=== PATIENT | female | born 1980 | race Caucasian/White ===

== ENCOUNTER 2017-07-06 22:49 | Emergency (ER) | payer BC, OTHER ==
--- NOTE | 2017-07-06 23:08 | EDM.PDOC ---
ED HPI GENERAL MEDICAL PROBLEM - General Chief Complaint: Lower Extremity Injury/Pain Stated Complaint: HURT RIGHT FOOT Time Seen by Provider: 07/06/17 23:08 Source of Information: Reports: Patient - History of Present Illness INITIAL COMMENTS - FREE TEXT/NARRATIVE: HISTORY AND PHYSICAL: History of present illness: []Patient stepped off a curb tonight twisted her foot complains of 8 out of 10 pain unable to bare weight No fever nausea vomiting chills sweats Review of systems: As per history of present illness and below otherwise all systems reviewed and negative. Past medical history: As per history of present illness and as reviewed below otherwise noncontributory. Surgical history: As per history of present illness and as reviewed below otherwise noncontributory. Social history: No reported history of drug or alcohol abuse. Family history: As per history of present illness and as reviewed below otherwise noncontributory. Physical exam: HEENT: Atraumatic, normocephalic, pupils reactive, negative for conjunctival pallor or scleral icterus, mucous membranes moist, throat clear, neck supple, nontender, trachea midline. Lungs: Clear to auscultation, breath sounds equal bilaterally, chest nontender. Heart: S1S2, regular, negative for clicks, rubs, or JVD. Abdomen: Soft, nondistended, nontender. Negative for masses or hepatosplenomegaly. Negative for costovertebral tenderness. Pelvis: Stable nontender. Genitourinary: Deferred. Rectal: Deferred. Extremities: Atraumatic, negative for cords or calf pain. Neurovascular unremarkable. Neuro: Awake, alert, oriented. Cranial nerves II through XII unremarkable. Cerebellum unremarkable. Motor and sensory unremarkable throughout. Exam nonfocal. Right rag cutting machine tender over the dorsum entire limb is neurovascularly intact no bruising there is some soft tissue swelling Diagnostics: Right foot 3 views []Right ankle [address] right foot Therapeutics: []Patient declines pain medication on arrival [place] 5 per 325 2 tabs by mouth now Discussed with podiatry nursing education specialist [facility], he recommends tall CAM boot pain control follow-up with podiatry and 1-2 weeks Impression: []Right foot/ankle pain Minimally displaced fracture anterior process of calcaneus Definitive disposition and diagnosis as appropriate pending reevaluation and review of above. Left Feet Pain Score (Numeric/FACES): 5 - Related Data Allergies Allergy/AdvReac Type Severity Reaction Status Date / Time No Known Allergies Allergy Verified 07/06/17 23:00 Home Meds: Home Meds . 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 (See Below) Other OB/BYN History: , d& C Musculoskeletal History: Reports: None Neurological History: Reports: None Psychiatric History: Reports: None Endocrine/Metabolic History: Reports: None Hematologic History: Reports: None Immunologic History: Reports: None Oncologic (Cancer) History: Reports: None Dermatologic History: Reports: None - Past Surgical History Head Surgeries/Procedures: Reports: None HEENT Surgical History: Reports: None Cardiovascular Surgical History: Reports: None Respiratory Surgical History: Reports: None GI Surgical History: Reports: None Female Surgical History: Reports: None Endocrine Surgical History: Reports: None Neurological Surgical History: Reports: None Musculoskeletal Surgical History: Reports: None Oncologic Surgical History: Reports: None Dermatological Surgical History: Reports: None Social & Family History - Family History Family Medical History: Noncontributory - Tobacco Use Smoking Status *Q: Current Every Day Smoker Years of Tobacco use: 1 Packs/Tins Daily: 0.5 Second Hand Smoke Exposure: No - Caffeine Use Caffeine Use: Reports: Coffee - Alcohol Use Days Per Week of Alcohol Use: 0 - Recreational Drug Use Recreational Drug Use: No Review of Systems - Review of Systems Review Of Systems: ROS reveals no pertinent complaints other than HPI. ED EXAM, GENERAL - Physical Exam Exam: See Below Course - Vital Signs Last Recorded V/S: Last Vital Signs Temp 98.5 F 07/06/17 23:01 Pulse 67 07/06/17 23:01 Resp 16 07/06/17 23:01 BP 149/82 H 07/06/17 23:01 Pulse Ox 98 07/06/17 23:01 - Orders/Labs/Meds Orders: Active Orders 24 hr Category Date Time Status Ankle Min 3V Rt [CR] Stat Exams 07/06/17 23:07 Taken Foot Comp Min 3V Rt [CR] Stat Exams 07/06/17 23:08 Taken Foot wo Cont Rt [CT] Stat Exams 07/07/17 00:14 Taken Meds: Medications Discontinued Medications Generic Name Dose Route Start Last Admin Trade Name Richard PRN Reason Stop Dose Admin Hydrocodone Bitart/Acetaminophen 2 tab 07/07/17 01:33 [place] 325-5 Mg PO 07/07/17 01:34 ONETIME ONE Departure - Departure Time of Disposition: 01:37 Disposition: Home, Self-Care 01 Condition: Good Clinical Impression: Fracture of anterior process of calcaneus - Discharge Information Referrals: PCP,None [Primary Care Provider] - Forms: ED Department Discharge Additional Instructions: Cam boot Crutches Nonweightbearing Rest ice ibuprofen [place] 5 per 325 one to 2 tabs by mouth every 6 when necessary #30 no refill Follow-up with podiatry in one to 2 weeks, call number below for appropriate follow-up [facility] - Podiatry [facility] [place] [id number] The following information is given to patients seen in the emergency department who are being discharged to home. This information is to outline your options for follow-up care. We provide all patients seen in our emergency department with a follow-up referral. The need for follow-up, as well as the timing and circumstances, are variable depending upon the specifics of your emergency department visit. If you don't have a primary care physician on staff, we will provide you with a referral. We always advise you to contact your personal physician following an emergency department visit to inform them of the circumstance of the visit and for follow-up with them and/or the need for any referrals to a consulting specialist. The emergency department will also refer you to a specialist when appropriate. This referral assures that you have the opportunity for follow-up care with a specialist. All of these measure are taken in an effort to provide you with optimal care, which includes your follow-up. Under all circumstances we always encourage you to contact your private physician who remains a resource for coordinating your care. When calling for follow-up care, please make the office aware that this follow-up is from your recent emergency room visit. If for any reason you are refused follow-up, please contact the [facility] emergency department at and asked to speak to the emergency department charge nurse. - My Orders Last 24 Hours: My Active Orders 07/06/17 23:07 Ankle Min 3V Rt [CR] Stat 07/06/17 23:08 Foot Comp Min 3V Rt [CR] Stat 07/07/17 00:14 Foot wo Cont Rt [CT] Stat - Assessment/Plan Last 24 Hours: My Active Orders 07/06/17 23:07 Ankle Min 3V Rt [CR] Stat 07/06/17 23:08 Foot Comp Min 3V Rt [CR] Stat 07/07/17 00:14 Foot wo Cont Rt [CT] Stat
[2017-07-07] MEDS ORDERED: Acetaminophen/HYDROcodone 325-5 MG Tab PO ONE (01:33)
--- NOTE | 2017-07-07 09:54 | CR ---
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 Site : 1980 Study: XRay Extremity Right Foot [id number]/25/2017 11:38:30 PM Ordering Physician: Norma He Final Report: HISTORY: Right foot and ankle pain. Injury. TECHNIQUE: Three views of the right ankle. Three views of the right foot. COMPARISON: No prior. FINDINGS: Right ankle: Ankle mortise appears symmetric and maintained. No acute fracture involving the ankle. No radiopaque foreign body or soft tissue gas. - Right foot: On the AP foot radiograph, the longitudinally oriented lucency within the medial navicular bone could be projectional. Does the patient have pain associated with the medial aspect of the navicular bone? If so, a nondisplaced fracture may be considered and CT could be performed for further evaluation. Finding is not confirmed on other views as a true abnormality, however. Osseous structures are otherwise intact. Joint spaces are maintained. No significant malalignment. IMPRESSION: 1. No acute fracture involving the ankle or disruption of the ankle mortise. 2. On the AP foot radiograph, there is longitudinally-oriented lucency within the medial aspect of the navicular bone which may be projectional. Does the patient specifically have pain associated with the medial aspect of the navicular? If so, a CT could be performed to exclude fracture. 3. Osseous structures of the right foot are otherwise intact. Dictated by Adam Lombardi MD @ 07/07/2017 12:11:22 AM Dictated by: Adam Lombardi MD @ 07/07/2017 00:11:34 (Electronic Signature) Report Signed by Proxy. SYDNEY
--- NOTE | 2017-07-07 09:56 | CR ---
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 Site : 1980 Study: XRay Extremity Right Ankle [id number]/25/2017 11:38:54 PM Ordering Physician: Norma He Final Report: HISTORY: Right foot and ankle pain. Injury. TECHNIQUE: Three views of the right ankle. Three views of the right foot. COMPARISON: No prior. FINDINGS: Right ankle: Ankle mortise appears symmetric and maintained. No acute fracture involving the ankle. No radiopaque foreign body or soft tissue gas. - Right foot: On the AP foot radiograph, the longitudinally oriented lucency within the medial navicular bone could be projectional. Does the patient have pain associated with the medial aspect of the navicular bone? If so, a nondisplaced fracture may be considered and CT could be performed for further evaluation. Finding is not confirmed on other views as a true abnormality, however. Osseous structures are otherwise intact. Joint spaces are maintained. No significant malalignment. IMPRESSION: 1. No acute fracture involving the ankle or disruption of the ankle mortise. 2. On the AP foot radiograph, there is longitudinally-oriented lucency within the medial aspect of the navicular bone which may be projectional. Does the patient specifically have pain associated with the medial aspect of the navicular? If so, a CT could be performed to exclude fracture. 3. Osseous structures of the right foot are otherwise intact. Dictated by Adam Lombardi MD @ 07/07/2017 12:11:22 AM Dictated by: Adam Lombardi MD @ 07/07/2017 00:11:51 (Electronic Signature) Report Signed by Proxy. SYDNEY
--- NOTE | 2017-07-08 10:52 | CT ---
EXAM DATE: 07/06/17 PATIENT'S AGE: 36 Patient: CATHY SAVAGE Facility: [facility] Site . Site : 1980 Study: CT-Extremity Right Foot [id number]/26/2017 12:46:32 AM Ordering Physician: Norma He Final Report: Indication: Pain. Evaluate for an occult fracture. Technique: Contiguous axial images were acquired through the right foot with sagittal and coronal reconstructions. Comparison: Radiographs from 07/06/2017. Findings: There is an essentially nondisplaced fracture in the superolateral margin of the tip of the anterior process of the calcaneus. The remainder of the visualized osseous structures are intact. Incidentally noted are benign enostoses/bone islands in the talus and calcaneus. The joint spaces and bony alignment are within normal limits. Impression: Nondisplaced fracture involving the superolateral margin of the anterior process of the calcaneus. Please note that all CT scans at this facility use dose modulation, iterative reconstruction, and/or weight-based dosing when appropriate to reduce radiation dose to as low as reasonably achievable. Dictated by Kory Doran MD @ Jul 08 2017 7:44AM Signed by: Kory Doran MD @07/08/2017 7:51:05 AM (Electronic Signature) Report Signed by Proxy. [facility]
== END 2017-07-07 02:00 | disposition home or self-care (01) ==
LOC: MW.ED 22:49
DX: S92.024A Nondisplaced fracture of anterior process of right calcaneus, initial encounter for closed fracture (principal); W22.8XXA Striking against or struck by other objects, initial encounter
CPT/HCPCS: 73610; 73630; 73700; 99284; A9270

== ENCOUNTER 2019-06-12 20:15 | Emergency (ER) | payer BC ==
[2019-06-12] MEDS ORDERED: Sodium Chloride 0.9% 2.5 ML Syringe FLUSH PRN (20:32)
[2019-06-12] MEDS ORDERED: Sodium Chloride 0.9% 10 ML Syringe FLUSH PRN (20:32)
--- NOTE | 2019-06-12 20:41 | EDM.PDOC ---
ED HPI GENERAL MEDICAL PROBLEM - General Chief Complaint: Chest Pain Stated Complaint: CHEST PAINS Time Seen by Provider: 06/12/19 20:40 Source of Information: Reports: Patient History Limitations: Reports: No Limitations - History of Present Illness INITIAL COMMENTS - FREE TEXT/NARRATIVE: HISTORY AND PHYSICAL: History of present illness: Patient is a 38-year-old female presents to the ED with complaint of shortness of breath and neck pain. She states for the past 2 weeks she has had a dry cough and the past couple of days she feels like it is difficult to take a deep breath and having some chest pain which she attributes to the cough. She is also complaining of a sore throat x 2 weeks. She denies fevers, chills, nausea, vomiting, abdominal pain. She states she also has neck pain and a "lump" in the back of her neck x 3 months. She saw her PCP and was referred to neurology for the neck pain and history of headaches. She has not had an ultrasound of the lump. She states it feels like it has gotten bigger. She denies difficulty breathing or swallowing. Review of systems: As per history of present illness and below otherwise all systems reviewed and negative. Past medical history: As per history of present illness and as reviewed below otherwise noncontributory. Surgical history: As per history of present illness and as reviewed below otherwise noncontributory. Social history: No reported history of drug or alcohol abuse. Family history: As per history of present illness and as reviewed below otherwise noncontributory. Physical exam: General: Patient sitting comfortably in no acute distress and nontoxic appearing HEENT: There is a 1-2cm mobile right occipital lymph node. There is also an enlarged right posterior cervical and right submandibular lymph node. No supraclavicular or other LAD noted. Atraumatic, normocephalic, pupils reactive, negative for conjunctival pallor or scleral icterus, mucous membranes moist, throat clear, neck supple, nontender, trachea midline. No meningeal signs. Lungs: Clear to auscultation, breath sounds equal bilaterally, chest nontender. Heart: S1S2, regular, negative for clicks, rubs, or overt murmur. Abdomen: Soft, nondistended, nontender. Negative for masses or hepatosplenomegaly. Negative for costovertebral tenderness. No rigidity, rebound , guarding. Pelvis: Stable nontender. Genitourinary: Deferred. Rectal: Deferred. Extremities: Atraumatic, negative for cords or calf pain. Neurovascular unremarkable. Neuro: Awake, alert, oriented. Cranial nerves II through XII unremarkable. Cerebellum unremarkable. Motor and sensory unremarkable throughout. Exam nonfocal. Notes: Patient advised to reschedule follow up appointment for lymph node US and need for possible biopsy. Diagnostics: CBC, CMP, Rapid strep, chest x-ray, cervical x-ray Therapeutics: Prescriptions: Impression: Lymphadenopathy, acute bronchitis Plan: Take antibiotic as instructed Follow up with primary care provider Return to ED as needed as discussed Definitive disposition and diagnosis as appropriate pending reevaluation and review of above. Neck Pain Score (Numeric/FACES): 4 - Related Data Allergies Allergy/AdvReac Type Severity Reaction Status Date / Time No Known Allergies Allergy Verified 06/12/19 20:30 Home Meds: Home Meds Albuterol [Ventolin HFA] 1 puff INH Q4H #1 inhaler 06/12/19 [Rx] Codeine/Butalbital/ASA/Caffein [Ascomp with Codeine] 1 each PO ASDIRECTED [History] buPROPion [Wellbutrin] 250 mg PO BID 06/12/19 [History] busPIRone HCl [busPIRone] 45 mg PO ASDIRECTED 06/12/19 [History] traMADol [Ultram] 50 mg PO ASDIRECTED 06/12/19 [History] Past Medical History HEENT History: Reports: None Cardiovascular History: Reports: None Respiratory History: Reports: None Gastrointestinal History: Reports: None Genitourinary History: Reports: None 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: , Other (See Below) Other BLOCKMAN History: , d& C Musculoskeletal History: Reports: None Neurological History: Reports: None Psychiatric History: Reports: None Endocrine/Metabolic History: Reports: None Hematologic History: Reports: None Immunologic History: Reports: None Oncologic (Cancer) History: Reports: None Dermatologic History: Reports: None - Infectious Disease History Infectious Disease History: Reports: None - Past Surgical History Head Surgeries/Procedures: Reports: None HEENT Surgical History: Reports: None Cardiovascular Surgical History: Reports: None Respiratory Surgical History: Reports: None GI Surgical History: Reports: None Female Surgical History: Reports: Section, D&C Endocrine Surgical History: Reports: None Neurological Surgical History: Reports: None Musculoskeletal Surgical History: Reports: None Oncologic Surgical History: Reports: None Dermatological Surgical History: Reports: None Social & Family History - Family History Family Medical History: Noncontributory - Tobacco Use Smoking Status *Q: Current Every Day Smoker Years of Tobacco use: 2 Packs/Tins Daily: 0.2 - Caffeine Use Caffeine Use: Reports: Coffee - Recreational Drug Use Recreational Drug Use: No ED ROS GENERAL - Review of Systems Review Of Systems: ROS reveals no pertinent complaints other than HPI. ED EXAM, GENERAL - Physical Exam Exam: See Below (see dictation) Course - Vital Signs Last Recorded V/S: Last Vital Signs Temp 98.5 F 06/12/19 20:32 Pulse 102 H 06/12/19 20:32 Resp 18 06/12/19 20:32 BP 126/95 H 06/12/19 20:32 Pulse Ox 97 06/12/19 20:32 - Orders/Labs/Meds Orders: Active Orders 24 hr Category Date Time Status Cardiac Monitoring [RC] . DIRECTED Care 06/12/19 20:32 Inactive EKG Documentation Completion [RC] STAT Care 06/12/19 20:32 Active CULTURE STREP A CONFIRMATION [] Stat Lab 06/12/19 21:10 Results STREP SCRN A RAPID W CULT CONF [] Stat Lab 06/12/19 21:10 Results Labs: Laboratory Tests 06/12/19 06/12/19 Range/Units 21:10 21:10 WBC 10.81 (4.0-11.0) K/uL RBC 4.85 (4.30-5.90) M/uL Hgb 14.0 (12.0-16.0) g/dL Hct 42.0 (36.0-46.0) % MCV 86.6 (80.0-98.0) fL MCH 28.9 (27.0-32.0) pg MCHC 33.3 (31.0-37.0) g/dL RDW Std Deviation 42.1 (28.0-62.0) fl RDW Coeff of [place] 14 (11.0-15.0) % Plt Count 242 (150-400) K/uL MPV 10.20 (7.40-12.00) fL Neut % (Auto) 57.2 (48.0-80.0) % Lymph % (Auto) 30.8 (16.0-40.0) % [place] % (Auto) 7.8 (0.0-15.0) % Eos % (Auto) 3.8 (0.0-7.0) % Baso % (Auto) 0.4 (0.0-1.5) % Neut # (Auto) 6.2 H (1.4-5.7) K/uL Lymph # (Auto) 3.3 H (0.6-2.4) K/uL [place] # (Auto) 0.8 (0.0-0.8) K/uL Eos # (Auto) 0.4 (0.0-0.7) K/uL Baso # (Auto) 0.0 (0.0-0.1) K/uL Nucleated RBC % 0.0 /100WBC Nucleated RBCs # 0 K/uL Sodium 144 (136-145) mmol/L Potassium 3.8 (3.5-5.1) mmol/L Chloride 105 (98-107) mmol/L Carbon Dioxide 26.4 (21.0-32.0) mmol/L BUN 20 H (7.0-18.0) mg/dL Creatinine 0.8 (0.6-1.0) mg/dL Est Cr Clr Drug Dosing 97.69 mL/min Estimated GFR (MDRD) > 60.0 ml/min Glucose 109 H (74-106) mg/dL Calcium 8.4 L (8.5-10.1) mg/dL Total Bilirubin 0.2 (0.2-1.0) mg/dL AST 11 L (15-37) IU/L ALT 24 (14-63) IU/L Alkaline Phosphatase 80 (46-116) U/L Total Protein 7.7 (6.4-8.2) g/dL Albumin 4.3 (3.4-5.0) g/dL Globulin 3.4 (2.6-4.0) g/dL Albumin/Globulin Ratio 1.3 (0.9-1.6) Meds: Medications Discontinued Medications Generic Name Dose Route Start Last Admin Trade Name Freq PRN Reason Stop Dose Admin Sodium Chloride 10 ml 06/12/19 20:32 Saline Flush FLUSH ASDIRECTED PRN Keep Vein Open Sodium Chloride 2.5 ml 06/12/19 20:32 Saline Flush FLUSH ASDIRECTED PRN Keep Vein Open Departure - Departure Time of Disposition: 21:50 Disposition: Home, Self-Care 01 Condition: Good Clinical Impression: Acute bronchitis, Lymphadenopathy Referrals: Ariel Maya MD [Primary Care Provider] - Forms: ED Department Discharge Additional Instructions: The following information is given to patients seen in the emergency department who are being discharged to home. This information is to outline your options for follow-up care. We provide all patients seen in our emergency department with a follow-up referral. The need for follow-up, as well as the timing and circumstances, are variable depending upon the specifics of your emergency department visit. If you don't have a primary care physician on staff, we will provide you with a referral. We always advise you to contact your personal physician following an emergency department visit to inform them of the circumstance of the visit and for follow-up with them and/or the need for any referrals to a consulting specialist. The emergency department will also refer you to a specialist when appropriate. This referral assures that you have the opportunity for follow-up care with a specialist. All of these measure are taken in an effort to provide you with optimal care, which includes your follow-up. Under all circumstances we always encourage you to contact your private physician who remains a resource for coordinating your care. When calling for follow-up care, please make the office aware that this follow-up is from your recent emergency room visit. If for any reason you are refused follow-up, please contact the [facility] Emergency Department at and asked to speak to the emergency department charge nurse. [facility] [address] [place] [address] [id number] [address] [address] - My Orders Last 24 Hours: My Active Orders 06/12/19 20:32 Cardiac Monitoring [RC] . DIRECTED EKG Documentation Completion [RC] STAT 06/12/19 21:10 CULTURE STREP A CONFIRMATION [RM] Stat STREP SCRN A RAPID W CULT CONF [RM] Stat - Assessment/Plan Last 24 Hours: My Active Orders 06/12/19 20:32 Cardiac Monitoring [RC] . DIRECTED EKG Documentation Completion [RC] STAT 06/12/19 21:10 CULTURE STREP A CONFIRMATION [RM] Stat STREP SCRN A RAPID W CULT CONF [RM] Stat
--- NOTE | 2019-06-12 21:18 | CR ---
INDICATION: chest pain TECHNIQUE: Chest 2 views. COMPARISON: None. FINDINGS: Cardiovascular and mediastinum: Heart size and vasculature are normal in caliber and appearance. Mediastinum is within normal limits. Lungs and pleural spaces: Lungs are clear. No sign of infiltrate or mass. No sign of pleural effusion. No pneumothorax. Bones and soft tissues: No significant findings. IMPRESSION: Unremarkable chest. Dictated by: Mohsen Ayon MD @ 06/12/2019 21:16:00 (Electronically Signed)
--- NOTE | 2019-06-12 21:22 | CR ---
INDICATION: Pain, no history of trauma TECHNIQUE: Cervical spine 3 view. COMPARISON: None FINDINGS: Bones: Alignment is normal. No fractures or significant bone lesions. Joints: Disc spaces and facets are unremarkable. Soft tissues: Unremarkable. IMPRESSION: Unremarkable cervical spine. Dictated by Mohsen Ayon MD @ 06/12/2019 9:20:21 PM Dictated by: Mohsen Ayon MD @ 06/12/2019 21:20:27 (Electronically Signed)
[2019-06-12 21:40] LABS: BLOOD UREA NITROGEN,BUN 20 mg/dL (7.0-18.0); CARBON DIOXIDE,CO2 26.4 mmol/L (21.0-32.0); CHLORIDE,CL 105 mmol/L (98-107); GLUCOSE RANDOM 109 mg/dL (74-106); POTASSIUM,K 3.8 mmol/L (3.5-5.1); SODIUM,NA 144 mmol/L (136-145)
== END 2019-06-12 22:30 | disposition home or self-care (01) ==
LOC: MW.ED 20:15
DX: J20.9 Acute bronchitis, unspecified (principal); R59.1 Generalized enlarged lymph nodes; F17.210 Nicotine dependence, cigarettes, uncomplicated
CPT/HCPCS: 36415; 71046; 71046-26; 72040; 72040-26; 80053; 85025; 87081; 87880-QW; 93005; 99283; 99285-25

== ENCOUNTER 2020-09-23 18:14 | Emergency (ER) | payer BC ==
[2020-09-23] MEDS ORDERED: fentaNYL 50 MCG/ML SDV IVPUSH ONE ×2 (19:09→19:36)
[2020-09-23] MEDS ORDERED: Sodium Chloride 0.9% 10 ML Syringe FLUSH PRN (19:09)
[2020-09-23] MEDS ORDERED: Sodium Chloride 0.9% 2.5 ML Syringe FLUSH PRN (19:09)
--- NOTE | 2020-09-23 19:12 | EDM.PDOC ---
ED HPI GENERAL MEDICAL PROBLEM - General Chief Complaint: Skin Complaint Stated Complaint: LUMP ON SIDE Time Seen by Provider: 09/23/20 19:03 - History of Present Illness INITIAL COMMENTS - FREE TEXT/NARRATIVE: 39yoF with no prior PMH no current meds or allergies presenting with a painful lump in her left axilla that started 6 days ago and has failed to respond to Bactrim. No fever, no other sx, no nausea. Pt otherwise feels well. Pt also with a less painful lump in the right axilla. She denies prior h/o similar issues. Left Axillary Pain Score (Numeric/FACES): 10 - Related Data Allergies Allergy/AdvReac Type Severity Reaction Status Date / Time No Known Allergies Allergy Verified 09/23/20 18:22 Home Meds: Home Meds buPROPion [Wellbutrin] 250 mg PO BID 06/12/19 [History] traMADol [Ultram] 50 mg PO ASDIRECTED 06/12/19 [History] ALPRAZolam [Xanax] 0.25 mg PRN 09/23/20 [History] Acetaminophen/HYDROcodone [[place] 325-10 MG] 1 tab PO Q6HR PRN 3 Days #12 tablet 09/23/20 [Rx] Ibuprofen 600 mg PO TID 5 Days #15 tablet 09/23/20 [Rx] LORazepam [Lorazepam] 1 mg PO PRN 09/23/20 [History] Sulfamethoxazole/Trimethoprim [Bactrim 400-80 MG] 1 dose PO BID 09/23/20 [History] Past Medical History HEENT History: Reports: None Cardiovascular History: Reports: None Respiratory History: Reports: None Gastrointestinal History: Reports: None Genitourinary History: Reports: None [employer] WORKER History: Reports: , Other (See Below) Other [employer] WORKER History: , d& C Musculoskeletal History: Reports: None Neurological History: Reports: None Psychiatric History: Reports: None Endocrine/Metabolic History: Reports: None Hematologic History: Reports: None Immunologic History: Reports: None Oncologic (Cancer) History: Reports: None Dermatologic History: Reports: None - Infectious Disease History Infectious Disease History: Reports: None - Past Surgical History Head Surgeries/Procedures: Reports: None HEENT Surgical History: Reports: None Cardiovascular Surgical History: Reports: None Respiratory Surgical History: Reports: None GI Surgical History: Reports: None Female Surgical History: Reports: Section, D&C Endocrine Surgical History: Reports: None Neurological Surgical History: Reports: None Musculoskeletal Surgical History: Reports: None Oncologic Surgical History: Reports: None Dermatological Surgical History: Reports: None Social & Family History - Family History Family Medical History: No Pertinent Family History - Tobacco Use Tobacco Use Status *Q: Never Tobacco User - Caffeine Use Caffeine Use: Reports: Coffee, Energy Drinks, Soda, Tea - Recreational Drug Use Recreational Drug Use: No ED ROS GENERAL - Review of Systems Review Of Systems: See Below Free Text/Narrative/Comment: General: No fever. Skin: Per HPI Neurologic: No headache. ED EXAM, SKIN/RASH Exam: See Below Text/Narrative:: General Appearance: No acute distress, appears comfortable Skin: 1 cm axillary abscess in the right axilla it is tender it is minimally warm there is no overlying cellulitis, in the left axilla there is 1 much larger axillary abscess as well as 2 other additional smaller axillary abscesses with overlying erythema and significant tenderness but no generalized spreading cellulitis HEENT: Normocephalic/atraumatic, sclera anicteric, mucous membranes moist Neck: Normal range of motion Musculoskeletal: No edema or tenderness Neurologic: Awake, alert, no obvious deficits, moving all extremities Psychiatric: Appropriate, cooperative ED SKIN PROCEDURES - I&D Progress/Comments: #1 Abscess Incision and Drainage Procedure Location: Right axilla Time out: Yes, confirmed patient, place, procedure correct Consent: Verbal Anesthetic used: Lidocaine Complexity: Complicated (packing used) Procedure: Site was prepped and cleaned in the usual fashion. Anesthetic infiltrated into the area. Incision made using scalpel with expression of purulent discharge. Exploration with hemostat resulted in more drainage. Wound irrigated copiously with normal saline and was packed with iodoform and bandaged with sterile gauze. Complications: None Performed by: Ricardo Nixon MD #2 Abscess Incision and Drainage Procedure Location: Left axilla, a total of 3 incisions and drainage were performed in the left axilla Time out: Yes, confirmed patient, place, procedure correct Consent: Verbal Anesthetic used: Lidocaine Complexity: Complicated (packing used) Procedure: Site was prepped and cleaned in the usual fashion. Anesthetic infiltrated into the area. Incision made using scalpel with expression of purulent discharge. Exploration with hemostat resulted in more drainage. Wound irrigated copiously with normal saline and was packed with iodoform and bandaged with sterile gauze. Complications: None Performed by: Ricardo Nixon MD Course - Vital Signs Last Recorded V/S: Last Vital Signs Temp 98.3 F 09/23/20 18:25 Pulse 91 09/23/20 19:26 Resp 18 09/23/20 19:26 BP 135/92 H 09/23/20 19:26 Pulse Ox 97 09/23/20 19:26 - Orders/Labs/Meds Orders: Active Orders 24 hr Category Date Time Status Sodium Chloride 0.9% [Saline Flush] Med 09/23/20 19:09 Active 10 ml FLUSH ASDIRECTED PRN Sodium Chloride 0.9% [Saline Flush] Med 09/23/20 19:09 Active 2.5 ml FLUSH ASDIRECTED PRN Saline Lock Insert [OM.PC] Stat Oth 09/23/20 19:09 Ordered Medication Orders Sodium Chloride (Saline Flush) 10 ml FLUSH ASDIRECTED PRN PRN Reason: Keep Vein Open Sodium Chloride (Saline Flush) 2.5 ml FLUSH ASDIRECTED PRN PRN Reason: Keep Vein Open Meds: Medications Generic Name Dose Route Start Last Admin Trade Name Freq PRN Reason Stop Dose Admin Sodium Chloride 10 ml 09/23/20 19:09 Saline Flush FLUSH ASDIRECTED PRN Keep Vein Open Sodium Chloride 2.5 ml 09/23/20 19:09 Saline Flush FLUSH ASDIRECTED PRN Keep Vein Open Discontinued Medications Generic Name Dose Route Start Last Admin Trade Name Freq PRN Reason Stop Dose Admin Hydrocodone Bitart/Acetaminophen 2 tab 09/23/20 20:03 09/23/20 20:12 [place] 325-5 Mg PO 09/23/20 20:04 2 tab ONETIME ONE Administration Fentanyl 50 mcg 09/23/20 19:09 09/23/20 19:21 Fentanyl IVPUSH 09/23/20 19:10 50 mcg ONETIME ONE Administration Fentanyl 50 mcg 09/23/20 19:36 09/23/20 19:39 Fentanyl IVPUSH 09/23/20 19:37 50 mcg ONETIME ONE Administration Fentanyl Confirm 09/23/20 19:33 09/23/20 19:39 Fentanyl Administered 09/23/20 19:34 Not Given Dose 50 mcg .ROUTE .STK-MED ONE Lidocaine/Epinephrine 20 ml 09/23/20 19:15 09/23/20 19:39 Xylocaine 1% With Epinephrine 1:100,000 INJECT 09/23/20 19:16 20 ml ONETIME ONE Administration Departure - Departure Time of Disposition: 19:57 Disposition: Home, Self-Care 01 Condition: Good Clinical Impression: Cutaneous abscesses of both axillae - Discharge Information *PRESCRIPTION DRUG MONITORING PROGRAM REVIEWED*: Not Applicable *COPY OF PRESCRIPTION DRUG MONITORING REPORT IN PATIENT CLINT: Not Applicable Prescriptions: Ibuprofen 600 mg PO TID 5 Days #15 tablet Acetaminophen/HYDROcodone [[place] 325-10 MG] 1 tab PO Q6HR PRN 3 Days #12 tablet PRN Reason: Pain Instructions: Skin Abscess, [id number] Referrals: Ariel Maya MD [Primary Care Provider] - Forms: ED Department Discharge Additional Instructions: Keep the area clean and dry for the next 24 hours some degree of drainage is normal and expected. Please change the gauze anytime it becomes wet or dirty released once a day. If the packing falls out you do not need to return. However it is important you return to the ER on Saturday morning to have your wound checked and any packing exchanged. Encourage you to take the ibuprofen every 8 hours with food you have the [place] for breakthrough pain if you need it. However, it is important that you do not combine this with any other sedating medications and do not combine with any alcohol. The following information is given to patients seen in the emergency department who are being discharged to home. This information is to outline your options for follow-up care. We provide all patients seen in our emergency department with a follow-up referral. The need for follow-up, as well as the timing and circumstances, are variable depending upon the specifics of your emergency department visit. If you don't have a primary care physician on staff, we will provide you with a referral. We always advise you to contact your personal physician following an emergency department visit to inform them of the circumstance of the visit and for follow-up with them and/or the need for any referrals to a consulting specialist. The emergency department will also refer you to a specialist when appropriate. T his referral assures that you have the opportunity for follow-up care with a specialist. All of these measure are taken in an effort to provide you with optimal care, which includes your follow-up. Under all circumstances we always encourage you to contact your private physician who remains a resource for coordinating your care. When calling for follow-up care, please make the office aware that this follow-up is from your recent emergency room visit. If for any reason you are refused follow-up, please contact the [facility] Emergency Department at and asked to speak to the emergency department charge nurse. Sepsis Event Note (ED) - Evaluation Sepsis Screening Result: No Definite Risk - Focused Exam Vital Signs: Vital Signs Temp Pulse Resp BP Pulse Ox 09/23/20 19:26 91 18 135/92 H 97 09/23/20 18:25 98.3 F 100 16 135/92 H 97 - My Orders Last 24 Hours: My Active Orders 09/23/20 19:09 Sodium Chloride 0.9% [Saline Flush] 10 ml FLUSH ASDIRECTED PRN Sodium Chloride 0.9% [Saline Flush] 2.5 ml FLUSH ASDIRECTED PRN Saline Lock Insert [OM.PC] Stat - Assessment/Plan Last 24 Hours: My Active Orders 09/23/20 19:09 Sodium Chloride 0.9% [Saline Flush] 10 ml FLUSH ASDIRECTED PRN Sodium Chloride 0.9% [Saline Flush] 2.5 ml FLUSH ASDIRECTED PRN Saline Lock Insert [OM.PC] Stat Assessment:: 39yoF with bilateral axillary abscesses that require I&D. Given the need for multiple I&Ds will provide IV fentanyl just prior to the procedure. I&D is performed without immediate complication aftercare discussed and understood patient will continue the Bactrim that she was prescribed by her primary care provider. Patient will return on Saturday morning for wound check this is 2 days from now.
[2020-09-23] MEDS ORDERED: Lidocaine 1% with EPINEPHrine 1:100,000 20 ML MDV INJECT ONE (19:15)
[2020-09-23] MEDS ORDERED: fentaNYL 50 MCG/ML SDV ONE (19:33)
[2020-09-23] MEDS ORDERED: Acetaminophen/HYDROcodone 325-5 MG Tab PO ONE (20:03)
== END 2020-09-23 20:25 | disposition home or self-care (01) ==
LOC: MW.ED 18:14
DX: L02.412 Cutaneous abscess of left axilla (principal); L02.411 Cutaneous abscess of right axilla
CPT/HCPCS: 10061; 96374; 99282; A9270; J3010; 99283

== ENCOUNTER 2020-09-25 19:14 | Emergency (ER) | payer BC ==
--- NOTE | 2020-09-25 20:42 | EDM.PDOC ---
ED HPI GENERAL MEDICAL PROBLEM - General Chief Complaint: Wound Recheck Stated Complaint: WOUND CHECK Time Seen by Provider: 09/25/20 19:38 Source of Information: Reports: Patient History Limitations: Reports: No Limitations - History of Present Illness INITIAL COMMENTS - FREE TEXT/NARRATIVE: HISTORY AND PHYSICAL: History of present illness: Patient is a 39-year-old female who presents emergency room today for wound reevaluation and repacking. Patient states she was just seen in the emergency room on 09/23/2020 and was instructed to return to the emergency room for reevaluation of her wound and to get it repacked. Patient states that she has been taking antibiotics as prescribed to her and has noticed improvement of her infection. Patient denies any new or associated symptoms. Patient denies fever, chills, chest pain, shortness of breath, or cough. Denies headache, neck stiff ness, change in vision, syncope, or near syncope. Denies nausea, vomiting, abdominal pain, diarrhea, constipation, or dysuria. Has not noted any blood in urine or stool. Patient has been eating and drinking appropriately. Review of systems: As per history of present illness and below otherwise all systems reviewed and negative. Past medical history: As per history of present illness and as reviewed below otherwise noncontributory. Surgical history: As per history of present illness and as reviewed below otherwise noncontributory. Social history: See social history for further information Family history: As per history of present illness and as reviewed below otherwise n oncontributory. Physical exam: General: Patient is alert, oriented, and in no acute distress. Patient sitting comfortably on exam table. Vitals stable and reviewed by me. HEENT: Atraumatic, normocephalic, pupils equal and reactive bilaterally, negative for conjunctival pallor or scleral icterus, mucous membranes moist, TMs normal bilaterally, throat clear, neck supple, nontender, trachea midline. No drooling or trismus noted. No meningeal signs. No hot potato voice noted. Lungs: Clear to auscultation, breath sounds equal bilaterally, chest nontender. Heart: S1S2, regular rate and rhythm without overt murmur Abdomen: Soft, nondistended, nontender. Negative for masses or hepatosplenomegaly. Negative for costovertebral tenderness. Pelvis: Stable nontender. Genitourinary: Deferred. Rectal: Deferred. Skin: Intact, warm, dry. No lesions or rashes noted. Extremities: There is a 1 cm axillary abscess that is priorly drained in the right that is mildly tender without warmth. This appears to be healing well. There is a larger axillary abscess of the left with noted iodoform dressing and 2 smaller abscess in the left axilla, one with iodoform packing and the other without that all appear to be healing well, mildly erythematous without drainage or warmth. Otherwise, atraumatic, negative for cords or calf pain. Neurovascular unremarkable. Neuro: Awake, alert, oriented. Cranial nerves II through XII unremarkable. Cerebellum unremarkable. Motor and sensory unremarkable throughout. Exam nonfocal. Notes: I did remove patient's packing in her left axilla of her 2 prior abscess I&D and repacked these abscess incisions. Her abscess appears to be healing well in both axilla. Signs and symptoms that would prompt return to the ED thoroughly discussed with patient. Discussed importance for follow-up with a primary care provider. Voices understanding and is agreeable to plan of care. Denies any further questions or concerns at this time. Diagnostics: None Therapeutics: Wound repacking Prescription: None Impression: Wound check, abscess, left axilla Plan: Patient left ED prior to discharge instructions Definitive disposition and diagnosis as appropriate pending reevaluation and review of above. Bilateral Axillary Pain Score (Numeric/FACES): 2 - Related Data Allergies Allergy/AdvReac Type Severity Reaction Status Date / Time No Known Allergies Allergy Verified 09/25/20 20:06 Home Meds: Home Meds buPROPion [Wellbutrin] 250 mg PO BID 06/12/19 [History] traMADol [Ultram] 50 mg PO ASDIRECTED 06/12/19 [History] ALPRAZolam [Xanax] 0.25 mg PO ASDIRECTED PRN 09/23/20 [History] Acetaminophen/HYDROcodone [[place] 325-10 MG] 1 tab PO Q6HR PRN 3 Days #12 tablet 09/23/20 [Rx] Ibuprofen 600 mg PO TID 5 Days #15 tablet 09/23/20 [Rx] LORazepam [Lorazepam] 1 mg PO ASDIRECTED PRN 09/23/20 [History] Sulfamethoxazole/Trimethoprim [Bactrim 400-80 MG] 1 dose PO BID 09/23/20 [History] Past Medical History HEENT History: Reports: None Cardiovascular History: Reports: None Respiratory History: Reports: None Gastrointestinal History: Reports: None Genitourinary History: Reports: None BILLPOSTER History: Reports: , Other (See Below) Other BILLPOSTER History: , d& C Musculoskeletal History: Reports: None Neurological History: Reports: None Psychiatric History: Reports: Anxiety Endocrine/Metabolic History: Reports: None Hematologic History: Reports: None Immunologic History: Reports: None Oncologic (Cancer) History: Reports: None Dermatologic History: Reports: None - Infectious Disease History Infectious Disease History: Reports: None - Past Surgical History Head Surgeries/Procedures: Reports: None HEENT Surgical History: Reports: None Cardiovascular Surgical History: Reports: None Respiratory Surgical History: Reports: None GI Surgical History: Reports: None Female Surgical History: Reports: Section, D&C Endocrine Surgical History: Reports: None Neurological Surgical History: Reports: None Musculoskeletal Surgical History: Reports: None Oncologic Surgical History: Reports: None Dermatological Surgical History: Reports: None Social & Family History - Family History Family Medical History: No Pertinent Family History - Caffeine Use Caffeine Use: Reports: Coffee, Energy Drinks, Soda, Tea - Recreational Drug Use Recreational Drug Use: No ED ROS GENERAL - Review of Systems Review Of Systems: Comprehensive ROS is negative, except as noted in HPI. ED EXAM, GENERAL - Physical Exam Exam: See Below (see dictation) Course - Vital Signs Last Recorded V/S: Last Vital Signs Temp 97.8 F 09/25/20 19:59 Pulse 88 09/25/20 19:59 Resp 16 09/25/20 19:59 BP 142/104 H 09/25/20 19:59 Pulse Ox 98 09/25/20 19:59 Departure - Departure Time of Disposition: 10:56 Disposition: Home, Self-Care 01 Clinical Impression: Wound check, abscess - Discharge Information Referrals: PCP,None [Primary Care Provider] - Forms: ED Department Discharge Additional Instructions: Patient left the ED prior to discharge instructions Sepsis Event Note (ED) - Evaluation Sepsis Screening Result: No Definite Risk
== END 2020-09-25 20:58 | disposition home or self-care (01) ==
LOC: MW.ED 19:14
DX: Z48.817 Encounter for surgical aftercare following surgery on the skin and subcutaneous tissue (principal)
CPT/HCPCS: 99282